=== PATIENT | male | born 1985 | race Caucasian/White ===

== ENCOUNTER → 2018-07-21 16:07 | Outpatient (CLI) | payer BC, SELFPAY ==
--- NOTE | 2018-07-21 16:45 | MRI_ITS ---
STUDY: MRI LUMBAR SPINE WITH AND WITHOUT CONTRAST REASON FOR EXAM: Male, 32 years old. Post laminectomy syndrome with low back pain and left thigh pain TECHNIQUE: Standardized fat and water weighted pulse sequences were obtained in the sagittal and axial planes. 20 ml of Dotarem contrast material was administered for the contrast portion of the examination. COMPARISON: 08/24/2010 FINDINGS: T12-L1: Normal endplates. Normal disc height, hydration and morphology. Normal bilateral facet joints. Normal central canal and bilateral lateral recesses. Normal bilateral intervertebral neural foramina. Normal lumbar lordosis. There is no substantial scoliosis. Normal conus medullaris that terminates at the L1 level. L1-2: Bulging annulus with mild central canal and right foraminal stenoses. L2-3: Bulging annulus with mild central canal and bilateral foraminal stenoses. L3-4: Bulging annulus with moderate central canal and bilateral foraminal stenoses. L4-5: Left laminectomy. Bulging annulus and bilateral facet hypertrophy with moderate bilateral foraminal stenoses. L5-S1: Left laminectomy. Broad central and left foraminal disc protrusion, likely recurrent, with moderate left lateral recess stenosis and moderate to severe left foraminal stenosis. Normal visualized sacral ala. Normal visualized paraspinous soft tissue structures. MRI/Spine Lumbar W/WO Contrast IMPRESSION: Multiple degenerative and postoperative changes as described. Probable recurrent broad central and left foraminal disc protrusion at L5-S1 with moderate left lateral recess stenosis and moderate to severe left foraminal stenosis. Electronically Signed: German Vázquez MD at 0:48 EDT Tel , Service support ,
== END ==
DX: M54.16 Radiculopathy, lumbar region (principal); M96.1 Postlaminectomy syndrome, not elsewhere classified
CPT/HCPCS: 72158

== ENCOUNTER 2019-09-12 08:12 | Emergency (ER) | payer BC, SELFPAY ==
[2019-09-12 08:12] VITALS: BP 154/95; PULSE 77; RESP 16; TEMP 36.2; O2SAT 98; BMI 43.6
--- NOTE | 2019-09-12 08:20 | CT_ITS ---
STUDY: CT ABDOMEN AND PELVIS WITHOUT CONTRAST REASON FOR EXAM: Male, 34 years old. Right flank pain, diarrhea RADIATION DOSAGE (If Supplied By Facility): CTDIvol = ( 32.76 ) mGy, DLP = ( 1857.96 ) mGycm TECHNIQUE: Transaxial images were obtained from the dome of the diaphragm to the symphysis pubis without oral contrast, and without intravenous contrast. Sagittal and coronal images were reconstructed. Individualized dose optimization techniques were used for this CT. COMPARISON: None. FINDINGS: The visualized lung bases are unremarkable. The visualized portions of the heart are within normal limits. Normal liver. Normal gallbladder and extrahepatic biliary system. The spleen is enlarged measuring up to 16 cm in AP diameter. Normal pancreas. Normal bilateral adrenal glands. There is mild right hydronephrosis. Just inside the bladder wall at the ureterovesicular junction there is a 3.9 mm stone.. Normal left kidney. Normal visualized stomach. Normal small intestine. There is a decompressed appearance of the colon. The appendix is visualized and appears normal. There is trace calcification of the aorta. Normal inferior vena cava. Normal retroperitoneum. Normal urinary bladder. Normal visualized prostate gland. There is a right-sided inguinal hernia containing adipose tissue. There are multilevel Schmorl's nodes. There is a broad disc protrusion at L3-L4 particularly at L4-L5 in the left lateral disc protrusion L5-S1 with moderate to severe neural foramina narrowing and moderate central stenosis. CT/Abdomen/Pelvis without Cont IMPRESSION: 3.9 mm stone just at the bladder wall on the right at the ureterovesicular junction with mild right hydronephrosis. Decompressed colon nonspecific. Mild to moderate splenomegaly. Degenerative changes lower lumbar spine L3 through sacrum. Electronically Signed: Liana Caceres MD at 9:05 EST Tel , Service support ,
[2019-09-12] MEDS: Ondansetron 4 MG/2 ML Vial IV (08:25)
[2019-09-12] MEDS: Ketorolac 30 MG/ML Syringe IV (08:25)
[2019-09-12 08:30] LABS: Absolute Lymphocyte Count 1.35 X10^3/uL (0.83-4.51); Absolute Neutrophil Count 4.8 X10^3/uL (2.0-7.7); Basophil# 0.01 X10^3/uL; Basophil% 0.2 % (0-1); Eosinophil# 0.04 X10^3/uL; Eosinophils% 0.6 % (0-5); Hematocrit 48.9 % (40-54); Hemoglobin 16.4 g/dL (13.0-16.5); Lymphocyte # 1.35 X10^3/ul (4.0); Lymphocyte % 20.9 % (19-41); Mean Corp Hgb Conc 33.5 g/dL (32-36); Mean Corpuscular Hgb 28.8 pg (27.0-32.0); Mean Corpuscular Volume 85.8 fL (80-94); Mean Platelet Vol. 10.3 fl (6.2-12.0); Monocyte# 0.29 X10^3/uL; Monocyte% 4.5 % (0-10); NRBC Flagged by Analyzer 0 % (0-5); Neutrophil # 4.75 X10^3/uL (2.7-7.7); Neutrophil % 73.5 % (47-70); Platelet Count 190 K/mm3 (150-450); RBC Distribution Width CV 12.5 % (11.6-14.6); RBC Distribution Width SD 38.7 fl (35.1-43.9); White Blood Count 6.5 K/mm3 (4.4-11.0)
--- NOTE | 2019-09-12 08:31 | ED.RN ---
cool clamy, diaphoretic
[2019-09-12] MEDS: 0.9% Normal Saline 1,000 ML 1000 ML IV (08:32)
[2019-09-12] MEDS: HYDROmorphone 1 MG/ML Syringe IV ×2 (08:36→09:45)
--- NOTE | 2019-09-12 08:43 | ED.VISSUMM ---
- ER Visit Summary Date of Service: 09/12/19 Chief Complaint: Right abdominal pain History of Present Illness: The patient is a 34 M with right side abdominal pain that started suddenly today at 6:30 AM. It radiates down into his right testicle. The pain is severe. He never had this before. He denies any urinary symptoms. Denies fevers. He does have some nausea. Physical Examination: Afebrile and vital signs unremarkable. Patient is pacing and appears uncomfortable. Heart regular. No respiratory distress. Right flank tender to palpation. Right CVA tender to palpation. Skin appears normal. Test Results: Labs, urine, CT flank pending. Emergency Department Course and Treatment: Patient treated with fluids, Toradol, Zofran while awaiting results. I am very suspicious for ureteral colic. He had continued pain and required Dilaudid. Results are still pending. CBC and BMP unremarkable. Urinalysis also fairly unremarkable. CT shows a 3.9 mm calculus at the bladder wall at the right UVJ. He has mild to moderate splenomegaly and chronic and nonspecific changes as well. I believe the patient is seeing or recently passed the stone through his ureter. He has no signs of complications or infection. I believe he is appropriate for outpatient care. His pain is controlled with Toradol and Dilaudid. He is in pain management. He will continue his home pain medicines. Will add Flomax and Zofran as needed. Refer to urology. Urine strainer. Treatment Plan: As above Disposition: Discharge Impression: 1. Right flank pain This note was generated with [employer] dictation software. It may contain incorrect words, spelling, and punctuation that were not noted in review of the chart prior to signing ED Disposition - Plan for ED Patient: Referrals: Care Physician,No Primary [NON-STAFF] -
[2019-09-12 08:44] LABS: Anion Gap 6 (5-15); BUN 7 mg/dL (7-18); BUN/Creat Ratio 6.1 RATIO (10-20); Chloride 107 mmol/L (98-107); Creatinine, Serum 1.15 mg/dL (0.70-1.30); EST Glomerular Filtration Rate 76 mL/min (>60); Est Glom Filt Rate - Afr Amer 93 mL/min (>60); Estimated Creatinine Clearance 103.25 ml/min; Glucose 125 mg/dL (74-106); Potassium 3.6 mmol/L (3.5-5.1); Sodium Level 143 mmol/L (136-145)
[2019-09-12 09:18] LABS: Bacteria 0 SEEN /hpf (None Seen); Mucous, Urine 0 SEEN /hpf (<or=2+); Squamous Epithelial Cells - UA 0 SEEN /hpf (0-5); White Blood Cells 0 SEEN /hpf (0-5)
[2019-09-12 09:21] LABS: Color, Urine Yellow (Yellow); Glucose, Dipstick Normal (Normal); Ketone-Dipstick Negative (Negative); Leukocyte Esterase-Dipstick Negative /ul (Negative); Nitrite-Dipstick Negative (Negative); Occult Blood-Urine 10 /ul (Negative); Protein-Dipstick 30 mg/dl (Negative); Urine Bilirubin Dipstick Negative (Negative); Urine Clarity Clear (Clear); Urine Urobilinogen 1 mg/dl (Normal)
[2019-09-12 09:27] LABS: Red Blood Cells-Urine 0-5 SEEN /hpf (0-5)
[2019-09-12 10:40] VITALS: RESP 14
--- NOTE | 2019-09-12 11:07 | ED.DEP ---
ED Disposition - Plan for ED Patient: Instructions: KIDNEY STONE w/ Colic Prescriptions: Tamsulosin HCl [Flomax] 0.4 mg PO DAILY #7 cap Prescription Printed Ondansetron [Zofran Odt] 4 mg PO Q8H PRN PRN #10 tab PRN Reason: Nausea Prescription Printed Referrals: Colten Block MD [STAFF PHYSICIAN] -
[2019-09-12 11:17] VITALS: BP 118/67; PULSE 72; RESP 16; O2SAT 98
== END 2019-09-12 11:18 | disposition home or self-care (01) ==
LOC: ED 09:19
PROVIDERS: Emergency Provider Emergency Medicine; Family Provider Preventive Medicine Occupational Medicine; PCP Preventive Medicine Occupational Medicine
DX: R10.9 Unspecified abdominal pain (principal); F17.220 Nicotine dependence, chewing tobacco, uncomplicated
CPT/HCPCS: 74176; 80048; 81001; 85025; 96361; 96374; 96375; 96376; 99284; J7030; A4216; J2405

== ENCOUNTER 2020-10-16 16:26 | Emergency (ER) | payer BC, SELFPAY ==
[2020-10-16 16:27] VITALS: BP 156/115; PULSE 76; RESP 16; TEMP 36.1; O2SAT 97; BMI 38.6
--- NOTE | 2020-10-16 16:38 | ED.VIS.GEN ---
History of Present Illness Chief Complaint: Flank Pain Informant: Patient Onset: Hours - Onset 1300 Context: Sudden Onset Timing: Continuous, Waxes and wanes Quality: Colicky pain Location: Left flank radiating to left groin Current Severity: Severe Maximum Severity: Severe Worsened by: Nothing Relieved by: Nothing Associated Symptoms: Nausea and diaphoresis Narrative: Patient a 35-year-old male who has history of renal and ureterolithiasis. He most recently seen September 12 for obstructing stone. He presents with acute colicky left flank pain that radiates to his left groin. Pain is waxing waning nature. He does report nausea and diaphoresis. Denies fever or chills. He denies dysuria or hematuria. Does report frequency/urgency. He denies history of trauma. He denies cardiac respiratory symptoms. No known history of renal insufficiency. He denies history of diabetes. Prior similar symptoms: Yes Recent Illness/Hospitalization: No - Past Medical History (1) Renal calculi Status: Acute Past Medical History - Allergies and Home Meds Allergies/Adverse Reactions: Allergies No Known Allergies Allergy (Verified 10/16/20 16:27) Primary Care Physician: Thompson Alegre DO [Primary Care Provider] - Prior records reviewed: Yes Surgical History: noncontributory Lives: Spouse/ Significant Other Smoking Status: Never smoker Alcohol: Rare Drugs: None Review of Systems General: Denies: Chills, Fever, Malaise, Subjective, Sweats, Weight loss ENT: Denies: Rhinorrhea, Sore throat Cardiovascular: Denies: Chest pain, Palpitations Respiratory: Denies: Dyspnea, Cough, Dyspnea on exertion Gastrointestinal: Reports: Abdominal pain, Nausea. Denies: Vomiting, Diarrhea, Melena, Hematochezia Genitourinary: Reports: Frequency. Denies: Dysuria, Hematuria Musculoskeletal: Reports: Back pain. Denies: Myalgias, Arthralgias, Neck pain, Swelling Skin: Denies: Rash, Wounds Endocrine: Denies: Polyuria, Polydipsia Hematologic: Denies: Easy bruising Allergy: Denies: Uticaria Physical Exam Vital Signs/Narrative: Vital Signs Temp Pulse Resp BP Pulse Ox 10/16/20 16:27 96.9 F L 76 16 156/115 H 97 Inital Vital Signs reviewed: Yes General: Well nourished, Well developed, Obese, Acute Distress Head: Normocephalic, Atraumatic Eyes: Perrl, EOMI. Negative for: Pale conjunctiva, Scleral icterus Neck: Supple, Nontender. Negative for: No lymphadenopathy, No JVD Cardiovascular: Regular rate, Regular rhythm, No murmurs, Normal S1, Normal S2 Respiratory: No distress, CTA bilaterally, Chest nontender Abdomen: Soft, Nontender, Nondistended, Normal bowel sounds, No masses, Hernia reducible Rectal: Deferred Back: Nontender, Normal Inspection, CVA tenderness - Left side Extremities: Nontender, No edema Skin: Normal color, No rash. Negative for: Cyanosis, Diaphoresis, Jaundice Neurological: Alert, Oriented x3, Cranial nerves II-XII grossly intact, Normal Strength, Normal Sensation Psychological: Normal affect, Normal Mood Diagnostic/Tx/Re-eval Impressions Abdomen/Pelvis CT 10/16/20 17:58 IMPRESSION: 2 mm stone in the left proximal ureter with mild left hydronephrosis. Electronically Signed: Misael Grossman, at 18:48 EST Tel , Service support , 10/16/20 17:58 Abdomen/Pelvis without Cont [CT] Stat Laboratory Results 10/16/20 10/16/20 10/16/20 16:40 16:40 17:20 WBC 8.9 RBC 5.23 Hgb 14.8 Hct 46.5 MCV 88.9 MCH 28.3 MCHC 31.8 L RDW Std Deviation 41.6 RDW Coeff of Shubham 12.8 Plt Count 225 MPV 11.0 Immature Gran % (Auto) 0.400 Neut % (Auto) 77.8 H Lymph % (Auto) 16.6 L [place] % (Auto) 4.3 Eos % (Auto) 0.6 Baso % (Auto) 0.3 Absolute Neuts (auto) 7.0 Absolute Lymphs (auto) 1.48 Nucleated RBC % 0 Sodium 142 Potassium 4.0 Chloride 104 Carbon Dioxide 34.0 H Anion Gap 4 L BUN 11 Creatinine 1.10 Estim Creat Clear Calc 109.89 Est GFR (MDRD) Af Amer 97 Est GFR (MDRD) Non-Af 80 BUN/Creatinine Ratio 10.0 Glucose 97 Calcium 9.1 Urine Color Kaitlynn Urine Clarity Turbid Urine pH 5.0 Ur Specific [place] 1.020 Urine Protein 100 H Urine Glucose (UA) Normal Urine Ketones 5 H Urine Occult Blood 250 H Urine Nitrite Positive H Urine Bilirubin 1 H Urine Urobilinogen 1 H Ur Leukocyte Esterase 25 H Urine RBC > 100 SEEN Urine WBC 0 SEEN Ur Squamous Epith Cells 0 SEEN Urine Bacteria 0 SEEN Urine Mucus 0 SEEN Patient had marked improvement after additional morphine. He states he is in pain management and cannot have prescription for pain medicine to go home with. Therefore, will order fentanyl patch. He was referred to urology for follow-up. He was told he has a 2 mm proximal left ureteral stone with hydronephrosis. - Medical Decision Making Patient's history and physical exam is consistent with obstructing ureteral stone. Will obtain UA to rule out infection. Blood work was obtained to assess renal function as well as white count. Since patient had a recent CAT scan less than [address] was not ordered. If there is evidence of infection will obtain CT to determine if patient has an obstructing stone. Nurse informed me that he did not get any relief from the 15 of Toradol and 4 morphine that was initially ordered. 8 mg of morphine was ordered. He was reassessed at 1755. He is still in significant pain pacing. He has dark bloody urine noted. UA is remarkable for hematuria. There is no evidence infection. Since patient is still writhing in pain, CT of the abdomen was ordered to evaluate for high-grade obstruction and determine size of stone. ED Disposition - Plan for ED Patient: Disposition: Home or Assisted Living Diagnosis: Calculus of proximal left ureter, Hydronephrosis, Gross hematuria Instructions: ED Kidney Stone w/ Colic Referrals: Thompson Alegre DO [Primary Care Provider] - Colten Block MD [STAFF PHYSICIAN] - 3-5 Days
[2020-10-16] MEDS: Ketorolac 15 MG/ML Vial IV (16:40)
[2020-10-16] MEDS: Ondansetron 4 MG/2 ML Vial IV (16:40)
[2020-10-16] MEDS: Morphine 4 MG/ML Syringe IV (16:41)
[2020-10-16] MEDS: 0.9% Normal Saline 1,000 ML 250 ML IV (16:42)
[2020-10-16 17:04] LABS: Anion Gap 4 (5-15); BUN 11 mg/dL (7-18); Calcium,Total 9.1 mg/dL (8.5-10.1); Chloride 104 mmol/L (98-107); EST Glomerular Filtration Rate 80 mL/min (>60); Est Glom Filt Rate - Afr Amer 97 mL/min (>60); Estimated Creatinine Clearance 109.89 ml/min; Glucose 97 mg/dL (74-106); Sodium Level 142 mmol/L (136-145)
[2020-10-16] MEDS: morphine 8 MG/ML Syringe IV ×2 (17:05→18:05)
[2020-10-16 17:07] LABS: Absolute Lymphocyte Count 1.48 X10^3/uL (0.83-4.51); Basophil# 0.03 X10^3/uL; Basophil% 0.3 % (0-1); Eosinophil# 0.05 X10^3/uL; Eosinophils% 0.6 % (0-5); Hematocrit 46.5 % (40-54); Hemoglobin 14.8 g/dL (13.0-16.5); Lymphocyte # 1.48 X10^3/ul (4.0); Lymphocyte % 16.6 % (19-41); Mean Corp Hgb Conc 31.8 g/dL (32-36); Mean Corpuscular Hgb 28.3 pg (27.0-32.0); Mean Corpuscular Volume 88.9 fL (80-94); Monocyte# 0.38 X10^3/uL; Monocyte% 4.3 % (0-10); NRBC Flagged by Analyzer 0 % (0-5); Neutrophil # 6.95 X10^3/uL (2.7-7.7); Neutrophil % 77.8 % (47-70); Platelet Count 225 K/mm3 (150-450); RBC Distribution Width CV 12.8 % (11.6-14.6); RBC Distribution Width SD 41.6 fl (35.1-43.9); Red Blood Count 5.23 M/mm3 (4.6-6.2); White Blood Count 8.9 K/mm3 (4.4-11.0)
[2020-10-16 17:26] LABS: Bacteria 0 SEEN /hpf (None Seen); Mucous, Urine 0 SEEN /hpf (<or=2+); Squamous Epithelial Cells - UA 0 SEEN /hpf (0-5); White Blood Cells 0 SEEN /hpf (0-5)
[2020-10-16 17:38] LABS: Color, Urine Amber (Yellow); Glucose, Dipstick Normal (Normal); Ketone-Dipstick 5 mg/dl (Negative); Leukocyte Esterase-Dipstick 25 /ul (Negative); Nitrite-Dipstick Positive (Negative); Occult Blood-Urine 250 /ul (Negative); Protein-Dipstick 100 mg/dl (Negative); Urine Bilirubin Dipstick 1 mg/dL (Negative); Urine Clarity Turbid (Clear); Urine Urobilinogen 1 mg/dl (Normal)
[2020-10-16 17:43] LABS: Red Blood Cells-Urine > 100 SEEN /hpf (0-5)
--- NOTE | 2020-10-16 17:58 | CT_ITS ---
STUDY: CT ABDOMEN AND PELVIS WITHOUT CONTRAST REASON FOR EXAM: Male, 35 years old. Left flank pain RADIATION DOSAGE (If Supplied By Facility): CTDIvol = ( 14.80 ) mGy, DLP = ( 829.65 ) mGycm TECHNIQUE: Transaxial images were obtained from the dome of the diaphragm to the symphysis pubis without oral contrast, and without intravenous contrast. Sagittal and coronal images were reconstructed. Individualized dose optimization techniques were used for this CT. COMPARISON: 09/12/19 FINDINGS: Evaluation of the abdominal viscera is limited in the absence of intravenous contrast. The visualized lung bases are clear. The visualized portions of the heart and pericardium are within normal limits. There are no calcified gallstones present. The liver demonstrates an unremarkable unenhanced appearance. The spleen is normal in size. The pancreas demonstrates an unremarkable unenhanced appearance. The adrenal glands are within normal limits. There is a 2 mm stone in the left proximal ureter (image 114 and series 1002). There is mild left hydronephrosis. There are no additional renal or ureteral stones. There is no right hydronephrosis. Normal visualized stomach. There is no bowel obstruction or inflammation. The appendix is visualized and appears normal. There is a stable small fat-containing right inguinal hernia. The aorta is normal in caliber. There is no abdominal or pelvic free air, free fluid, fluid collection or lymphadenopathy. There are no destructive osseous lesions. CT/Abdomen/Pelvis without Cont IMPRESSION: 2 mm stone in the left proximal ureter with mild left hydronephrosis. Electronically Signed: Misael Grossman, at 18:48 EST Tel , Service support ,
[2020-10-16 18:06] VITALS: BP 155/110; PULSE 80; RESP 18; O2SAT 100
[2020-10-16 19:00] VITALS: RESP 16
[2020-10-16] MEDS: fentaNYL 25 MCG Patch TD (20:07)
[2020-10-16 20:10] VITALS: BP 165/108; PULSE 80; RESP 16
== END 2020-10-16 20:17 | disposition home or self-care (01) ==
PROVIDERS: Emergency Provider Emergency Medicine; PCP Preventive Medicine Occupational Medicine
DX: N13.2 Hydronephrosis with renal and ureteral calculous obstruction (principal); R31.0 Gross hematuria; E66.9 Obesity, unspecified; Z87.442 Personal history of urinary calculi
CPT/HCPCS: 74176; 80048; 81001; 85025; 96374; 96375; 96376; 99284; J7030; A4216; J2405